=== PATIENT | male | born 1980 | race Native Hawaiian/Other Pacific Islander ===

== ENCOUNTER 2017-11-04 08:00 | Outpatient (CLI) | payer OTHER ==
[2017-11-04 13:06] LABS: ALBUMIN 4.3 g/dL (3.2-5.5); ALBUMIN/GLOBULIN RATIO 1.7 (1.0-2.2); ALKALINE PHOSPHATASE 82 IU/L (42-121); ALT ALANINE AMINOTRANSFERASE 55 IU/L (10-60); AST ASPARTATE AMINOTRANSFERASE 36 IU/L (10-42); BILIRUBIN,TOTAL 0.7 mg/dL (0.2-1.0); BUN - BLOOD UREA NITROGEN 14 mg/dL (6-20); CALCIUM 8.8 mg/dL (8.5-10.3); CARBON DIOXIDE - CO2 29 mmol/L (21-32); CHLORIDE 101 mmol/L (101-111); CHOL/HDL RATIO 5.5 (<5.0); CHOLESTEROL 204 mg/dL; CREATININE 1.1 mg/dL (0.6-1.2); GFR - MDRD 75 (>89); GLUCOSE 89 mg/dL (70-100); HDL CHOLESTEROL 37 mg/dL; LDL CHOLESTEROL,CALCULATED 139 mg/dL; LDL/HDL RATIO 3.8 (<3.6); SODIUM 136 mmol/L (135-145); TOTAL PROTEIN 6.9 g/dL (6.7-8.2); VLDL CHOLESTEROL 28 mg/dL
== END 2017-11-04 08:01 | disposition home or self-care (01) ==
LOC: LAB.WCP 08:00
PROVIDERS: ATTEND Physician Assistant Medical
DX: E78.5 Hyperlipidemia, unspecified (principal)
CPT/HCPCS: 36415; 80053; 80061; 83721

== ENCOUNTER 2019-01-15 08:08 | Outpatient (CLI) | payer OTHER ==
[2019-01-15 12:26] LABS: ALBUMIN 4.2 g/dL (3.2-5.5); ALBUMIN/GLOBULIN RATIO 1.2 (1.0-2.2); ALKALINE PHOSPHATASE 89 IU/L (42-121); ALT ALANINE AMINOTRANSFERASE 43 IU/L (10-60); AST ASPARTATE AMINOTRANSFERASE 32 IU/L (10-42); BILIRUBIN,TOTAL 0.9 mg/dL (0.2-1.0); BUN - BLOOD UREA NITROGEN 14 mg/dL (6-20); CALCIUM 8.9 mg/dL (8.5-10.3); CARBON DIOXIDE - CO2 25 mmol/L (21-32); CHLORIDE 100 mmol/L (101-111); CHOL/HDL RATIO 6.6 (<5.0); CHOLESTEROL 302 mg/dL; GFR - MDRD 84 (>89); GLUCOSE 100 mg/dL (70-100); HDL CHOLESTEROL 46 mg/dL; LDL CHOLESTEROL,CALCULATED 207 mg/dL; LDL/HDL RATIO 4.5 (<3.6); SODIUM 135 mmol/L (135-145); TOTAL PROTEIN 7.6 g/dL (6.7-8.2); VLDL CHOLESTEROL 49 mg/dL
[2019-01-15 12:30] LABS: BASOPHILS # (AUTO) 0.1 10^3/uL (0.0-0.1); BASOPHILS % (AUTO) 1.1 %; EOSINOPHILS # (AUTO) 0.5 10^3/uL (0.0-0.7); EOSINOPHILS % (AUTO) 8.7 %; HGB - HEMOGLOBIN 15.5 g/dL (14.0-18.0); LYMPHOCYTES # (AUTO) 2.1 10^3/uL (1.5-3.5); LYMPHOCYTES % (AUTO) 33.9 %; MEAN CORPUSCULAR HEMOGLOBIN 30.2 pg (27.0-31.0); MEAN CORPUSCULAR HGB CONC 33.6 g/dL (32.0-36.0); MEAN CORPUSCULAR VOLUME 89.9 fL (80.0-94.0); MONOCYTES # (AUTO) 0.6 10^3/uL (0.0-1.0); MONOCYTES % (AUTO) 9.3 %; NEUTROPHILS # (AUTO) 2.9 10^3/uL (1.5-6.6); NEUTROPHILS % (AUTO) 46.7 %; PLT - PLATELET COUNT 233 10^3/uL (130-450); RED BLOOD COUNT 5.13 10^6/uL (4.70-6.10); RED CELL DISTRIBUTION WIDTH 12.6 % (12.0-15.0); WHITE BLOOD COUNT 6.1 x10^3/uL (4.8-10.8)
== END 2019-01-15 08:09 | disposition home or self-care (01) ==
LOC: LAB.WCP 08:08
PROVIDERS: ATTEND Physician Assistant Medical
DX: E78.5 Hyperlipidemia, unspecified (principal)
CPT/HCPCS: 36415; 80053; 80061; 83721; 84443; 85025

== ENCOUNTER 2019-05-08 08:00 | Outpatient (CLI) | payer OTHER ==
[2019-05-08 12:46] LABS: ALBUMIN 4.5 g/dL (3.2-5.5); ALBUMIN/GLOBULIN RATIO 1.6 (1.0-2.2); ALKALINE PHOSPHATASE 70 IU/L (42-121); ALT ALANINE AMINOTRANSFERASE 41 IU/L (10-60); AST ASPARTATE AMINOTRANSFERASE 31 IU/L (10-42); BILIRUBIN,TOTAL 0.7 mg/dL (0.2-1.0); BUN - BLOOD UREA NITROGEN 18 mg/dL (6-20); CALCIUM 8.9 mg/dL (8.5-10.3); CARBON DIOXIDE - CO2 28 mmol/L (21-32); CHLORIDE 102 mmol/L (101-111); CHOL/HDL RATIO 5.1 (<5.0); CHOLESTEROL 221 mg/dL; GFR - MDRD 84 (>89); GLUCOSE 81 mg/dL (70-100); HDL CHOLESTEROL 43 mg/dL; LDL CHOLESTEROL,CALCULATED 147 mg/dL; LDL/HDL RATIO 3.4 (<3.6); SODIUM 139 mmol/L (135-145); TOTAL PROTEIN 7.4 g/dL (6.7-8.2); VLDL CHOLESTEROL 31 mg/dL
== END 2019-05-08 23:59 | disposition home or self-care (01) ==
LOC: LAB.WCP 08:00
PROVIDERS: ATTEND Physician Assistant Medical
DX: E78.5 Hyperlipidemia, unspecified (principal)
CPT/HCPCS: 36415; 80053; 80061; 83721

== ENCOUNTER 2020-07-04 14:51 | Outpatient (CLI) | payer OTHER ==
[2020-07-04 15:47] VITALS: BP 121/70
--- NOTE | 2020-07-04 15:47 | SLEEP CARE CONSULTATION ---
Information from patient questionnaire entered by Akua Sampson. I have reviewed and concur with the information entered by Akua Sampson. This document represents the service I personally performed and the decisions made by me, Radha Smith ARNP. History of Present Illness Service Date and Time: 07/04/2020 1451 Reason for Visit: New patient, Previously diagnosed sleep apnea (Not currently using CPAP), Re-establish care Chief Complaint: reports: Snoring, Excessive daytime sleepiness. denies: Insomnia, Unrefreshed sleep, Observed pauses in breathing, Fatigue, Frequent awakenings at night Date of Onset: 10 + years Usual bedtime: 8-9 PM Time it takes to fall asleep: 30 minutes Snores at night: Yes (depends) Observed to quit breathing while asleep: Yes Sleeps alone due to snoring: No Number of times waking at night: 0 Reasons for waking at night: denies: Choking, Snoring, Gasping for air Toss, Turn, or Twitch while sleeping: Yes Recalls having dreams: Yes Usually gets out of bed at: 0430 Feels refreshed in the morning: Yes Morning headache: No Sleepy or fatigued during the day: No Ever fallen asleep while driving: No Takes day naps: No Prior sleep studies: Yes Year and Where: [facility] 2008 Type of Sleep Study: Polysomnography Additional HPI information: I had the pleasure of seeing STEVIE ROSARIO today to reestablish care. He is not currently on CPAP therapy. His complaints today are snoring. His asked him to be checked because when he drinks he snores very loud. He states he normally sleeps well but when he has drunk alcohol the night before he wakes up tired. His has not stated that he has pauses in breathing. He doesn't snore at all unless he is on his back. He does not feel he wakes up frequently. He was last treated in 2008 with CPAP therapy but he lost significant weight and then stopped using the CPAP altogether. He is here because his has encouraged him to get rechecked or something to help reduce snoring. - Parasomnia Symptoms Ever been unable to move upon waking from sleep: No Walks in sleep: No Talks in sleep: No Ever acted out dreams in sleep: No Ever felt weak in the knees when startled or emotional: No Bothered by creepy, crawly, restless sensations in legs: No Problems with memory or concentration: No Subjective Initial [place] Sleepiness Scale score: 2 (in 2019) Past Medical History Past Medical History: reports: Anxiety, Depression, Mood disorder, Other (PTSD). 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 Patient is Single and lives in [place]. Have you smoked in the past 12 months: No Cigarettes per day (20/pack): 20 Years of smokin Quit date: 2003 Smoking Pack Years: 8.0 Alcohol use: Yes Alcohol amount and frequency: 2-3, 1-2 days week Caffeine use: Yes Caffeine amount and frequency: 1 cup coffee daily Family History Family history of sleep disordered breathing: Yes (Dad) Family Hx Sleep Apnea: Father: Snoring Allergies and Home Medications Drug allergies reviewed: Yes (NKDA) Home medication list reviewed: Yes (no medications) Review of Systems Cardiovascular: denies: high blood pressure, irregular heart rate or pulse Respiratory: denies: shortness of breath Gastrointestinal: denies: heartburn, difficulty swallowing Urinary: denies: impotence Neurological: denies: headaches, seizure, head trauma Psychiatric: reports: anxiety, depression, mood disorder, other (PTSD) Ear/Nose/Throat: reports: wisdom teeth removed. denies: nasal congestion, sinus problems, dry mouth/throat, tonsillectomy Musculoskeletal: reports: back pain Immunologic: denies: allergies to food or environment Physical Exam Blood Pressure: 121/70 Cuff size: long Heart Rate: 72 O2 Saturation: 98 Height: 5 ft 8 in Weight: 206 lb Body Mass Index: 31.3 BMI Classification: Obese Nostrils: patent to airflow Turbinates: normal Mouth and throat: narrow oropharynx Hard palate: arched Uvula visualization: 50% Mallampati Class II Tongue: enlarged in size with teeth riggs on lateral edges Tonsils: 1+ Chin and jaw: normal size and position Neck: normal w/o lymphadenopathy or thyromegaly Heart: regular rate and rhythm Lungs: clear bilaterally Impression and Plan 1. Suspected Obstructive Sleep Apnea-Hypopnea Syndrome, as previously diagnosed and as suggested by a continued loud and irregular snoring and excessive daytime sleepiness. I reviewed with patient that a narrow oropharynx and obesity are common predisposing factors for obstructive sleep apnea-hypopnea syndrome. He does have a history of sleep apnea and stopped using the CPAP because of some mask issues and felt okay without its treatment. He had lost weight. He did not follow up to see if his sleep apnea had reduced or resolved with the weight loss. He is only here because his snoring is very bad on the nights he drinks (weekends mostly). He does snore when on his back but his does not complain about it. I recommend proceeding to polysomnography to confirm or deny the diagnosis and to assess severity. After some discussion, I obtained agreement to proceed. The pathophysiology of obstructive sleep apnea-hypopnea syndrome was discussed with the patient and health risks of cardiovascular and cerebrovascular disease if not treated. Risks of drowsy driving discussed in detail and patient advised to avoid long distance driving and to tobacco sample puller at the first sign of drowsiness. Patient agreed to plan. * Schedule polysomnography +- manual CPAP titration study and return in 1-2 weeks after the study to discuss result and initiate therapy. * Avoid long distance driving or driving when feeling sleepy. * Avoid alcohol, sedative and muscle relaxant around bedtime. * Review instructions provided by trained office staff on how to prepare for the sleep study. * Return for follow-up after sleep study completed. Counseling Topics: Weight loss health impact Visit Type: In Office Time Spent with Patient (minutes): 31 Provider Statement: I spent 100% of the Face to Face Visit with the patient with greater than 50% spent counseling the patient and coordination of care.
== END 2020-07-04 14:52 | disposition home or self-care (01) ==
LOC: SC 14:51
PROVIDERS: ATTEND Nurse Practitioner Family
DX: G47.33 Obstructive sleep apnea (adult) (pediatric) (principal); E66.9 Obesity, unspecified; Z68.31 Body mass index [BMI] 31.0-31.9, adult
CPT/HCPCS: 99203; 99212

== ENCOUNTER 2020-07-24 14:49 | Outpatient (CLI) | payer OTHER ==
--- OUTSIDE RECORDS SUMMARY | 2020-07-30 01:16 | EXTERNAL MEDICAL SUMMARY RPT | Continuity of Care Document ---
:1980 Demographics Phone Unavailable Preferred Language Unknown Marital Status Unknown Religion Affiliation Unknown Race Unknown Ethnic Group Unknown Author Organization [facility] Address [address] [phone] Phone Care Team Providers Name Role Phone Young Unavailable Unavailable Problems date description facility 2014-04-17 10:45 ABDOMINAL PAIN, EPIGASTRIC [facility] 2017-11-04 08:00 HYPERLIPIDEMIA, UNSPECIFIED [facility] 2019-01-15 08:08 HYPERLIPIDEMIA, UNSPECIFIED [facility] 2019-05-08 08:00 HYPERLIPIDEMIA, UNSPECIFIED [facility] Allergies date description facility NO KNOWN ALLERGIES [facility] Social History date description facility [id number]
== END 2020-07-24 14:50 | disposition home or self-care (01) ==
LOC: SC 14:49
PROVIDERS: ATTEND Nurse Practitioner Family
DX: G47.10 Hypersomnia, unspecified (principal); R06.83 Snoring; E66.9 Obesity, unspecified; Z68.31 Body mass index [BMI] 31.0-31.9, adult
CPT/HCPCS: 95806

== ENCOUNTER 2020-08-01 10:18 | Outpatient (CLI) | payer OTHER ==
--- NOTE | 2020-08-01 10:23 | SLEEP CARE CONSULTATION ---
Information from patient questionnaire entered by Adrianne Cazares. I have reviewed and concur with the information entered by Adrianne Cazares. This document represents the service I personally performed and the decisions made by , Radha Smith ARNP. History of Present Illness Service Date and Time: 08/01/2020 1020 Initial [place] Sleepiness Scale score: 2 (in 2019) Additional HPI information: STEVIE ROSARIO returns via Telehealth visit for follow up and results of the recently performed home sleep study. The patient was informed of the following findings: he did not have significant sleep disordered breathing with an average AHI of 3.6 and minimal hypoxemia with a faiza oxygen saturation of 88%. I explained the pathophysiology behind obstructive sleep apnea. Patient does not have sleep apnea and was advised how weight gain could increase the risk of developing sleep apnea in the future. Patient has light snoring. Snoring can be reduced by weight loss. Weight loss is best achieved with diet consult. Patient instructed to contact PCP for referral. Snoring can also be treated with an oral appliance from a dentist. Advised to check insurance coverage. In addition, an ENT evaluation can be do to see if other treatment is indicated. Patient counseled not drink alcohol less than 4 hours before bedtime as it can increase snoring and apnea. Patient was cautioned about risks of drowsy driving until sleepiness symptoms resolve. Sleep Study - Results Type of Sleep Study: Home sleep study Prior sleep studies: Yes Year and Where: 2008 - [facility] Sleep Polysomnography/Home Sleep Study results: Physician Impression: The quality of the study is good. The length of the study is adequate (> 240 minutes). Please also see the tabulated and graphic data. 1. No significant sleep-disordered breathing, with an AHI of 3.6/hr and faiza SaO2 of 88%. During the study, the patient had 4 apneas (4 obstructive, 0 central, 0 mixed) and 24 hypopneas. The longest episode lasted 56.5 seconds. The few respiratory events occurred manly during supine sleep (supine AHI was 4.0 and non-supine, 0.99). 2. Hypoxemia (ICD-10 R09.02), minimal, with the lowest oxygen saturation of 88 % and 0.6 minutes with SaO2 under 90%. Baseline oxygen saturation was normal (Average oxygen saturation was 94%). Allergies and Home Medications Drug allergies reviewed: Yes (NKDA) Home medication list reviewed: Yes (no changes) Review of Systems Review of systems same as previous: Yes (no changes) Physical Exam Vital signs obtained and entered by: Telehealth visit to limit exposure during Covid pandemic Height: 5 ft 8 in Impression and Plan Snoring but no significant sleep disordered breathing. Patient advised that often weight loss will reduce snoring as well as apnea risk. An oral appliance can also be used for snoring. This would require a dental consultation. Patient cautioned not to use other online appliances as can cause bite issues. A list of accredited dentists in [facility] and one local dentist who makes oral appliances can be obtained at the office if he is interested in pursuing this option. Patient is advised to check if insurance will cover. An ENT consult can also be helpful to determine if any other treatment is an option. * Attempt to maintaing a healthy weight * Avoid alcohol consumption near bedtime * The patient is cautioned about driving until sleepiness is completely resolved. * Return as needed. Counseling Topics: Weight loss health impact Visit Type: Telehealth Video Video Type: [facility] Patient Location: Work Location of Provider: Office Patient agrees and consents to this telehealth visit type: Yes Patient agrees to have their insurance billed: Yes Time Spent with Patient (minutes): 10 Provider Statement: I spent 100% of the Telehealth Video Call with the patient with greater than 50% spent counseling the patient and coordination of care.
== END 2020-08-01 10:19 | disposition home or self-care (01) ==
LOC: SC 10:18
PROVIDERS: ATTEND Nurse Practitioner Family
DX: R06.83 Snoring (principal)

== ENCOUNTER 2020-08-25 08:00 | Outpatient (CLI) | payer OTHER ==
--- NOTE | 2020-08-25 15:39 | XRAY Report ---
PROCEDURE: Elbow 2 View RT INDICATIONS: BICEPS TENDINITIS TECHNIQUE: 2 views of the elbow were acquired. COMPARISON: None FINDINGS: Bones: No fractures or dislocations. No suspicious bony lesions. Soft tissues: There is an elbow joint effusion. No suspicious soft tissue calcifications. IMPRESSION: 1. Elbow joint effusion is present. If there is clinical evidence for fracture, this may indicate an occult underlying nondisplaced fracture. This could be further assessed with MRI, if clinically indic ated. Reviewed by: Rick Thomson MD on 08/25/2020 3:38 PM PST Approved by: Rick Thomson MD on 08/25/2020 3:38 PM PST Station ID: [id number]
== END 2020-08-25 23:59 | disposition home or self-care (01) ==
LOC: DI.N 08:00
PROVIDERS: ATTEND Nurse Practitioner
DX: M75.20 Bicipital tendinitis, unspecified shoulder (principal); M25.421 Effusion, right elbow

== ENCOUNTER 2020-12-03 15:22 | Outpatient (CLI) | payer OTHER ==
--- NOTE | 2020-12-03 15:55 | XRAY Report ---
PROCEDURE: Lumbar Spine 2 View INDICATIONS: STRAIN OF MUSCLE, FASCIA, AND TENDON OF LOWER BACK TECHNIQUE: 2 views of the lumbar spine were acquired. COMPARISON: None. FINDINGS: Bones: 5 [id number] vertebrae are present. There is normal bony alignment. No vertebral body compression fractures. No suspicious bony lesions. Mild multilevel endplate osteophyte formation. F acet hypertrophy throughout the mid and lower lumbar spine. Soft tissues: Overlying bowel gas pattern is normal. No suspicious soft tissue calcifications. IMPRESSION: Multilevel degenerative disc and facet disease. No acute fracture. No osseous lesion. If symptoms and/or clinical suspicion for pathology continue, further assessment with repeat plain film s, or advanced imaging (e.g., CT, MRI, or bone scan) is recommended for further assessment. Reviewed by: Rick Thomson MD on 12/03/2020 3:54 PM PDT Approved by: Rick Thomson MD on 12/03/2020 3:54 PM PDT Station ID: [id number]
== END 2020-12-03 23:59 | disposition home or self-care (01) ==
LOC: DI.N 15:22
PROVIDERS: ATTEND Physician Assistant Medical
DX: M47.816 Spondylosis without myelopathy or radiculopathy, lumbar region (principal); M51.36 Other intervertebral disc degeneration, lumbar region

== ENCOUNTER 2021-07-20 08:00 | Outpatient (CLI) | payer OTHER | END 2021-07-20 23:59 | LOC: LAB.N 08:00 | PROVIDERS: ATTEND Family Medicine | DX: U07.1 COVID-19 (principal) ==

== ENCOUNTER 2022-12-11 14:41 | Outpatient (CLI) | payer OTHER ==
[2022-12-11 19:19] LABS: FERRITIN 80.6 ng/mL (23.9-336.2)
== END 2022-12-11 14:42 | disposition home or self-care (01) ==
LOC: LAB.N 14:41
PROVIDERS: ATTEND Physician Assistant Medical
DX: R53.83 Other fatigue (principal)
CPT/HCPCS: 36415; 82306; 82607; 82728; 84403

== ENCOUNTER 2023-03-14 14:42 | Outpatient (CLI) | payer OTHER ==
[2023-03-17 13:11] LABS: FREE TESTOSTERONE(DIRECT) 7.5 pg/mL (6.8-21.5)
== END 2023-03-14 14:43 | disposition home or self-care (01) ==
LOC: LAB.N 14:42
PROVIDERS: ATTEND Physician Assistant Medical
DX: E29.1 Testicular hypofunction (principal)
CPT/HCPCS: 36415; 84402; 84403

== ENCOUNTER 2023-04-25 10:12 | Outpatient (CLI) | payer OTHER | END 2023-04-25 10:13 | disposition home or self-care (01) | LOC: LAB.N 10:12 | PROVIDERS: ATTEND Physician Assistant Medical | DX: E29.1 Testicular hypofunction (principal) | CPT/HCPCS: 36415; 84403 ==

== ENCOUNTER 2023-10-23 10:59 | Outpatient (CLI) | payer OTHER | END 2023-10-23 11:00 | disposition critical access hospital (66) | LOC: EMS 10:59 | DX: N50.812 Left testicular pain (principal); N50.811 Right testicular pain; R10.30 Lower abdominal pain, unspecified | CPT/HCPCS: A0425; A0429 ==

== ENCOUNTER 2023-10-23 11:15 | Emergency (ER) | payer OTHER ==
[2023-10-23 11:59] LABS: BASOPHILS # (AUTO) 0.1 10^3/uL (0.0-0.1); BASOPHILS % (AUTO) 0.9 %; EOSINOPHILS # (AUTO) 0.2 10^3/uL (0.0-0.7); HCT - HEMATOCRIT 50.4 % (42.0-52.0); HGB - HEMOGLOBIN 16.6 g/dL (14.0-18.0); LYMPHOCYTES # (AUTO) 0.9 10^3/uL (1.5-3.5); MEAN CORPUSCULAR HEMOGLOBIN 30.1 pg (27.0-31.0); MEAN CORPUSCULAR HGB CONC 32.9 g/dL (32.0-36.0); MEAN CORPUSCULAR VOLUME 91.3 fL (80.0-94.0); MEAN PLATELET VOLUME 9.3 fL (7.4-11.4); MONOCYTES # (AUTO) 0.8 10^3/uL (0.0-1.0); MONOCYTES % (AUTO) 7.3 %; NEUTROPHILS # (AUTO) 8.9 10^3/uL (1.5-6.6); NEUTROPHILS % (AUTO) 81.3 %; PLT - PLATELET COUNT 221 10^3/uL (130-450); RED BLOOD COUNT 5.52 10^6/uL (4.70-6.10); RED CELL DISTRIBUTION WIDTH 13.1 % (12.0-15.0); WHITE BLOOD COUNT 10.9 x10^3/uL (4.8-10.8)
[2023-10-23 12:14] LABS: ALBUMIN 4.2 g/dL (3.2-5.5); ALBUMIN/GLOBULIN RATIO 1.5 (1.0-2.2); BILIRUBIN,TOTAL 0.8 mg/dL (0.2-1.0); CALCIUM 9.2 mg/dL (8.5-10.3); CREATININE 1.2 mg/dL (0.6-1.3); POTASSIUM 3.5 mmol/L (3.5-4.5)
[2023-10-23 12:20] LABS: BILIRUBIN,URINE NEGATIVE (NEGATIVE); GLUCOSE, URINE (UA) NEGATIVE (NEGATIVE); KETONES,URINE (UA) NEGATIVE (NEGATIVE); LEUKOCYTE ESTERASE, URINE NEGATIVE (NEGATIVE); NITRITE,URINE NEGATIVE (NEGATIVE); OCCULT BLOOD,URINE NEGATIVE (NEGATIVE); PROTEIN,URINE NEGATIVE (NEGATIVE); UROBILINOGEN,URINE 0.2 (NORMAL) E.U./dL (NORMAL)
[2023-10-23 12:22] LABS: CLARITY,URINE CLEAR (CLEAR)
--- NOTE | 2023-10-23 13:28 | Ultrasound Report ---
PROCEDURE: Testicle w/Doppler INDICATIONS: testicular pain TECHNIQUE: Real-time scanning was performed of the scrotum and testicles, with image documentation. Color and p ulse Doppler interrogation was performed of both testicles. COMPARISON: None. FINDINGS: Right: Testicle is normal in size at 4.6 x 2.2 x 3.1 cm, and homogenous in echotexture. Epididymis is normal in overall size and morphology. Small hydrocele. No varicoceles. Overlying scrotal skin i s normal in thickness. Left: Testicle is normal in size at 4.3 x 2.7 x 2.5 cm, and homogeneous in echotexture. Peripheral v ascularity is partially imaged on prior Doppler. Epididymis is normal in overall size and morphology . No hydrocele. No varicoceles. Overlying scrotal skin is normal in thickness. Doppler: As above IMPRESSION: Diminished but present vascularity noted in the left testicle. Left testicle is also asymmetrically p ositioned within the scrotum relative to the right. Partial torsion with vascular compromise would be possible. Consider urology consult. Reviewed by: Moose Patel MD on 10/23/2023 12:27 PM LISA Approved by: Moose Patel MD on 10/23/2023 12:27 PM AKDT Station ID: [id number]
[2023-10-23] MEDS ORDERED: iohexoL-300 100 ML VIAL ONE (13:46)
[2023-10-23] MEDS: SODIUM CHLORIDE 0.9% 1,000 ML IV STA (14:13)
[2023-10-23] MEDS: iohexoL-300 100 ML VIAL IVP ONE (14:26)
[2023-10-23 14:51] VITALS: BP 127/86; O2SAT 94
--- NOTE | 2023-10-23 15:04 | CT Report ---
PROCEDURE: CT abdomen pelvis with contrast INDICATIONS: diffuse abd pain TECHNIQUE: Helical axial CT of the abdomen and pelvis was obtained after intravenous contrast adminis tration and reformatted in multiple planes. Radiation dose reduction was achieved using automated exp osure control or adjustment of mA and/or kV according to patient size. COMPARISON: None FINDINGS: Lower thorax: The lung bases are clear. Heart size normal. No hiatal hernia. Liver: Normal in size and attenuation. No contour deformity present. Biliary system: No calcified cholelithiasis or pericholecystic inflammation. No evidence of bile du ct dilatation. Pancreas: Unremarkable without mass or inflammation evident. Spleen: Normal in size and density. Adrenals: Normal morphology and density. Reproductive system: Unremarkable as visualized. Urinary system: Normal renal size and attenuation. No renal calculi, hydronephrosis, or solid mass p resent. Urinary bladder is distended to the umbilicus Gastrointestinal system: Mild fluid distention of the small bowel with wall enhancement. No obstruct ion or abscess present. The colon is unremarkable. Appendix: No findings to suggest acute appendicitis. Peritoneal spaces: No mesenteric or retroperitoneal adenopathy. No free air. No free fluid. Vasculature: The IVC, aorta and iliac vasculature are unremarkable. Abdominal wall: Abdominal wall is intact without evidence of ventral or inguinal hernias. Musculoskeletal: Normal bone mineralization. No acute fractures. IMPRESSION: Mild small bowel fluid distention could reflect nonspecific enteritis in the proper clinical setting Urinary bladder is distended to the umbilicus Reviewed by: Moose Patel MD on 10/23/2023 2:02 PM LISA Approved by: Moose Patel MD on 10/23/2023 2:02 PM AKDT Station ID: [id number]
--- NOTE | 2023-10-23 15:10 | ED Physician Documentation ---
History of Present Illness - Stated complaint Stated Complaint: ABD PX - Chief complaint Chief Complaint: General - History obtained from History obtained from: Patient, EMS - History of Present Illness Timing: Today Pain level max: 10 Pain level now: 1 - Additonal information Additional information: Patient is a 43-year-old male who presents to the emergency department via EMS. He states that today he felt the pain in his lower abdomen that he described as "getting kicked in the balls". He states that the pain moved up to his epigastric area and radiated to his chest. He states that he thought it may feel better crawling on the grounds that he got on his hands and knees crawled and tried to flex his back. He states that did not help the pain. He was sweating. No nausea, vomiting, diarrhea or constipation. 911 was called, upon arrival from EMS his pain had nearly resolved. Has not had similar symptoms previously. Has had a vasectomy in the past. Does not have any testicular pain now. Did not have testicular pain earlier either. There is a family history of biliary colic. Review of Systems Constitutional: denies: Fever, Chills Ears: denies: Ear pain Nose: denies: Rhinorrhea / runny nose, Congestion Respiratory: denies: Dyspnea, Cough : denies: Dysuria, Frequency, Hesitancy, Hematuria Skin: denies: Rash PD PAST MEDICAL HISTORY - Past Medical History Past Medical History: Yes Cardiovascular: None Respiratory: None Neuro: None Endocrine/Autoimmune: None GI: None : None HEENT: None Psych: Depression, Panic attacks, Post traumatic stress disorder Musculoskeletal: None Derm: None - Past Surgical History Past Surgical History: No - Allergies Allergies/Adverse Reactions: Allergies Allergy/AdvReac Type Severity Reaction Status Date / Time No Known Drug Allergies Allergy Verified 10/23/23 11:25 - Social History Does the pt smoke?: No Does the pt drink ETOH?: Yes Does the pt have substance abuse?: No PD ED PE NORMAL - Vitals Vital signs reviewed: Yes - General General: Alert and oriented X 3, No acute distress - HEENT HEENT: PERRL, Moist mucous membranes - Neck Neck: Supple, no meningeal sign - Cardiac Cardiac: RRR, Strong equal pulses - Respiratory Respiratory: No respiratory distress, Clear bilaterally - Abdomen Abdomen: Normal bowel sounds, Soft, Non tender, Non distended - Male Male : Other (Normal testicular exam. No swelling. No tenderness.) - Back Back: No CVA TTP - Derm Derm: Warm and dry - Extremities Extremities: No edema - Neuro Neuro: Alert and oriented X 3 - Psych Psych: Normal mood, Normal affect Results - Vitals Vitals: Vital Signs - 24 hr 10/23/23 10/23/23 10/23/23 11:20 13:25 15:00 Temperature 36.6 C Heart Rate 78 85 85 Respiratory 18 18 16 Rate Blood Pressure 139/63 H 127/86 H 127/86 H O2 Saturation 98 94 94 Oxygen O2 Source Room air - Labs Labs: Laboratory Tests 10/23/23 10/23/23 10/23/23 11:55 11:55 12:11 WBC 10.9 H RBC 5.52 Hgb 16.6 Hct 50.4 MCV 91.3 MCH 30.1 MCHC 32.9 RDW 13.1 Plt Count 221 MPV 9.3 Neut # (Auto) 8.9 H Lymph # (Auto) 0.9 L [place] # (Auto) 0.8 Eos # (Auto) 0.2 Baso # (Auto) 0.1 Absolute Nucleated RBC 0.00 Nucleated RBC % 0.0 Sodium 132 L Potassium 3.5 Chloride 101 Carbon Dioxide 25 Anion Gap 6.0 BUN 26 H Creatinine 1.2 Estimated GFR (MDRD) 66 L Glucose 118 H Calcium 9.2 Total Bilirubin 0.8 AST 39 ALT 36 Alkaline Phosphatase 60 Total Protein 7.0 Albumin 4.2 Globulin 2.8 Albumin/Globulin Ratio 1.5 Lipase 28 Urine Color YELLOW Urine Clarity CLEAR Urine pH 8.0 H Ur Specific [place] 1.015 Urine Protein NEGATIVE Urine Glucose (UA) NEGATIVE Urine Ketones NEGATIVE Urine Occult Blood NEGATIVE Urine Nitrite NEGATIVE Urine Bilirubin NEGATIVE Urine Urobilinogen 0.2 (NORMAL) Ur Leukocyte Esterase NEGATIVE Ur Microscopic Review NOT INDICATED Urine Culture Comments NOT INDICATED - Rads (name of study) CT abdomen pelvis Relevant Findings:: Final report received, See rad report Testicular ultrasound Relevant Findings:: Final report received, See rad report Right upper quadrant ultrasound Relevant Findings:: Final report received, See rad report PD Medical Decision Making - ED course Complexity details: reviewed results, re-evaluated patient, considered differential, d/w patient, d/w family ED course: 43-year-old male with severe abdominal pain earlier today. Asymptomatic in the emergency department. No significant findings on laboratory testing. Normal testicular exam here. His testicular ultrasound is abnormal, but given that he never had testicular pain and does not have any testicular pain now, question if this is from his vasectomy? Reviewed the results of the CT scan, both ultrasounds with the patient and his . If he develops any testicular pain, he will follow-up with urology or return here. No evidence of gallbladder disease. There is a question of possible enteritis on CT scan, he may have had an ileus today causing his pain. We will continue supportive care at home. He will return if he worsens. Abdomen is soft, nontender nondistended on serial examination. Patient counseled regarding signs and symptoms for which I believe and urgent re-evaluation would be necessary. Patient with good understanding of and agreement to plan and is comfortable going home at this time This document was made in part using voice recognition software. While efforts are made to proofread this document, sound alike and grammatical errors may occur. Departure - Departure Disposition: 01 Home, Self Care Clinical Impression: Abdominal pain Qualifiers: Abdominal location: generalized Qualified Code(s): R10.84 - Generalized abdominal pain Condition: Good Instructions: ED Abdominal Pain Unkn Cause Male Follow-Up: Cristin Spence PA-C [Primary Care Provider] - Comments: The cause of your symptoms is unclear today. As we discussed you do have an abnormal appearing left testicle on ultrasound but your symptoms do not sound consistent with testicular torsion. You also have some fluid in your small bowel that could have caused cramping and abdominal pain. This may be related to diarrhea later today. Please follow-up with your doctor for further care and return if you worsen, especially for increasing testicular pain. PROCEDURE: Testicle w/Doppler INDICATIONS: testicular pain TECHNIQUE: Real-time scanning was performed of the scrotum and testicles, with image documentation. Color and pulse Doppler interrogation was performed of both testicles. COMPARISON: None. FINDINGS: Right: Testicle is normal in size at 4.6 x 2.2 x 3.1 cm, and homogenous in echotexture. Epididymis is normal in overall size and morphology. Small hydrocele. No varicoceles. Overlying scrotal skin is normal in thickness. Left: Testicle is normal in size at 4.3 x 2.7 x 2.5 cm, and homogeneous in echotexture. Peripheral vascularity is partially imaged on prior Doppler. Epididymis is normal in overall size and morphology. No hydrocele. No varicoceles. Overlying scrotal skin is normal in thickness. Doppler: As above IMPRESSION: Diminished but present vascularity noted in the left testicle. Left testicle is also asymmetrically positioned within the scrotum relative to the right. Partial torsion with vascular compromise would be possible. Consider urology consult. PROCEDURE: CT abdomen pelvis with contrast INDICATIONS: diffuse abd pain TECHNIQUE: Helical axial CT of the abdomen and pelvis was obtained after intravenous contrast administration and reformatted in multiple planes. Radiation dose reduction was achieved using automated exposure control or adjustment of mA and/or kV according to patient size. COMPARISON: None FINDINGS: Lower thorax: The lung bases are clear. Heart size normal. No hiatal hernia. Liver: Normal in size and attenuation. No contour deformity present. Biliary system: No calcified cholelithiasis or pericholecystic inflammation. No evidence of bile duct dilatation. Pancreas: Unremarkable without mass or inflammation evident. Spleen: Normal in size and density. Adrenals: Normal morphology and density. Reproductive system: Unremarkable as visualized. Urinary system: Normal renal size and attenuation. No renal calculi, hydronephrosis, or solid mass present. Urinary bladder is distended to the umbilicus Gastrointestinal system: Mild fluid distention of the small bowel with wall enhancement. No obstruction or abscess present. The colon is unremarkable. Appendix: No findings to suggest acute appendicitis. Peritoneal spaces: No mesenteric or retroperitoneal adenopathy. No free air. No free fluid. Vasculature: The IVC, aorta and iliac vasculature are unremarkable. Abdominal wall: Abdominal wall is intact without evidence of ventral or inguinal hernias. Musculoskeletal: Normal bone mineralization. No acute fractures. IMPRESSION: Mild small bowel fluid distention could reflect nonspecific enteritis in the proper clinical setting Urinary bladder is distended to the umbilicus Forms: PCP List Discharge Date/Time: 10/23/23 15:24
--- NOTE | 2023-10-23 15:38 | Ultrasound Report ---
PROCEDURE: Abdomen Limited INDICATIONS: RUQ abd pain TECHNIQUE: Ultrasound of the abdominal right upper quadrant was obtained with image documentation. COMPARISONS: None. FINDINGS: Liver: Normal is size and echotexture. No evidence of focal mass lesion. No intra hepatic biliary ductal dilatation. Gallbladder: Sonolucent without cholelithiasis. No gallbladder wall thickening. No pericholecystic fluid or Angeles's sign. Common Bile Duct: 3 mm. Pancreas: Unremarkable as visualized. Right Kidney: Appropriate in size and echotexture. No evidence of hydronephrosis. No shadowing calc libby. No solid or cystic mass lesion. IMPRESSION: Unremarkable right upper quadrant ultrasound Reviewed by: Moose Patel MD on 10/23/2023 2:37 PM [facility] Approved by: Moose Patel MD on 10/23/2023 2:37 PM [facility]DT Station ID: [id number]
== END 2023-10-23 15:24 | disposition home or self-care (01) ==
LOC: EDUNIT# → ED 11:15
DX: R10.84 Generalized abdominal pain (principal)
CPT/HCPCS: 36415; 74177; 76705; 76870; 80053; 81003; 83690; 85025; 93975; 99284; Q9967; 81001; 87086

== ENCOUNTER 2023-12-21 14:52 | Outpatient (CLI) | payer OTHER | END 2023-12-21 14:53 | disposition home or self-care (01) | LOC: LAB.N 14:52 | PROVIDERS: ATTEND Physician Assistant Medical | DX: E29.1 Testicular hypofunction (principal) | CPT/HCPCS: 36415; 84403 ==